=== PATIENT | female | born 1980 | race Asian ===

== ENCOUNTER 2023-03-02 07:59 | Outpatient (CLI) | payer OTHER ==
[2023-03-02 12:11] LABS: BASOPHILS # (AUTO) 0.1 10^3/uL (0.0-0.1); BASOPHILS % (AUTO) 0.8 %; EOSINOPHILS # (AUTO) 0.2 10^3/uL (0.0-0.7); EOSINOPHILS % (AUTO) 3.7 %; HCT - HEMATOCRIT 34.6 % (37.0-47.0); HGB - HEMOGLOBIN 10.9 g/dL (12.0-16.0); MEAN CORPUSCULAR HEMOGLOBIN 29.6 pg (27.0-31.0); MEAN CORPUSCULAR HGB CONC 31.5 g/dL (32.0-36.0); MEAN PLATELET VOLUME 9.9 fL (7.9-10.8); MONOCYTES # (AUTO) 0.6 10^3/uL (0.0-1.0); MONOCYTES % (AUTO) 9.9 %; NEUTROPHILS # (AUTO) 3.2 10^3/uL (1.5-6.6); NEUTROPHILS % (AUTO) 52.3 %; PLT - PLATELET COUNT 245 10^3/uL (130-450); RED BLOOD COUNT 3.68 10^6/uL (4.20-5.40); RED CELL DISTRIBUTION WIDTH 12.4 % (12.0-15.0); WHITE BLOOD COUNT 6.2 x10^3/uL (4.8-10.8)
[2023-03-02 12:38] LABS: ALBUMIN 4.1 g/dL (3.2-5.5); ALBUMIN/GLOBULIN RATIO 1.4 (1.0-2.2); ALKALINE PHOSPHATASE 38 IU/L (42-121); ALT ALANINE AMINOTRANSFERASE 9 IU/L (10-60); AST ASPARTATE AMINOTRANSFERASE 13 IU/L (10-42); BILIRUBIN,TOTAL 0.4 mg/dL (0.2-1.0); BUN - BLOOD UREA NITROGEN 11 mg/dL (6-20); CALCIUM 9.3 mg/dL (8.5-10.3); CARBON DIOXIDE - CO2 25 mmol/L (21-32); CHLORIDE 105 mmol/L (101-111); CHOL/HDL RATIO 3.4 (<4.4); CHOLESTEROL 205 mg/dL; CREATININE 0.7 mg/dL (0.6-1.3); GFR - MDRD 92 (>89); GLUCOSE 95 mg/dL (74-104); HDL CHOLESTEROL 60 mg/dL; LDL CHOLESTEROL,CALCULATED 130 mg/dL; LDL/HDL RATIO 2.2 (<4.4); POTASSIUM 3.8 mmol/L (3.5-4.5); SODIUM 137 mmol/L (135-145); TOTAL PROTEIN 7.1 g/dL (6.4-8.9); TRIGLYCERIDES 76 mg/dL (48-352); VLDL CHOLESTEROL 15 mg/dL
[2023-03-02 12:39] LABS: THYROID STIMULATING HORMONE 3.63 uIU/mL (0.34-5.60)
== END 2023-03-02 08:00 | disposition home or self-care (01) ==
LOC: LAB.N 07:59
PROVIDERS: ATTEND Nurse Practitioner
DX: G43.909 Migraine, unspecified, not intractable, without status migrainosus (principal); Z13.220 Encounter for screening for lipoid disorders; F41.9 Anxiety disorder, unspecified; F41.0 Panic disorder [episodic paroxysmal anxiety]
CPT/HCPCS: 36415; 80053; 80061; 83721; 84443; 85025

== ENCOUNTER 2023-03-16 08:00 | Outpatient (CLI) | payer OTHER ==
[2023-03-16 15:12] LABS: FECAL OCCULT BLOOD (FIT) NEGATIVE (NEGATIVE)
== END 2023-03-16 23:59 | disposition home or self-care (01) ==
LOC: LAB 08:00
PROVIDERS: ATTEND Nurse Practitioner
DX: D64.9 Anemia, unspecified (principal)
CPT/HCPCS: 82274

== ENCOUNTER 2023-11-28 10:11 | Outpatient (CLI) | payer OTHER ==
--- NOTE | 2023-12-07 08:15 | Mammography Report ---
BILATERAL DIGITAL SCREENING MAMMOGRAM 3D/2D: 11/28/2023 CLINICAL: Routine screening. Family history of breast cancer. No prior exams were available for comparison. Both breasts are heterogeneously dense, which may obscure small masses (category c / 51-75% glandular tissue). There is an asymmetry in the right breast anterior depth medial region seen on the craniocaudal view only. There also is an oval focal asymmetry with an obscured margin in the right breast central to the nipp le middle depth. No other significant masses, calcifications, or other findings are seen in either breast. IMPRESSION: INCOMPLETE: NEEDS ADDITIONAL IMAGING EVALUATION The asymmetry in the right breast anterior depth medial region seen on the craniocaudal view only is indeterminate. The oval focal asymmetry in the right breast central to the nipple middle depth resembles a cyst and is indeterminate. Additional views with possible ultrasound are recommended. Based on Tyrer-Cuzick model (a risk assessment model), the patient's lifetime risk is 26.3% and her 1 0 year risk is 4.5%. If a patient has an elevated risk, a more comprehensive evaluation should be con sidered and/or a referral to a genetic counselor. The [employer], [employer], and NCCN Guidelines advise the consideration of Breast MRI as an adjunct to screening mammog essie in patients whose "Lifetime risk to develop breast cancer" is 20% or higher. This exam was interpreted at Station ID: [id number]. NOTE: For mammograms, a report in lay terms will be sent to the patient. Approximately 15% of breast malignancies will not be visualized mammographically. In the management of a palpable breast mass, a negative mammogram must not discourage biopsy of a clinically suspicious lesion. Electronically Signed By: Jaron Lima M.D. slc/:12/06/2023 11:29:22 ACR BI-RADS Category 0: Incomplete [id number] PARENCHYMAL PATTERN: (D) - The breast(s) demonstrate(s) heterogeneously dense fibroglandular parenchy ma. BI-RADS CATEGORY: (0) - 0 Mammo and [place] [id number] Immediate follow-up LATERALITY: (B)
== END 2023-11-28 10:12 | disposition home or self-care (01) ==
LOC: DI.N 10:11
DX: Z12.31 Encounter for screening mammogram for malignant neoplasm of breast (principal); Z80.3 Family history of malignant neoplasm of breast; R92.333 Mammographic heterogeneous density, bilateral breasts; R92.8 Other abnormal and inconclusive findings on diagnostic imaging of breast

== ENCOUNTER 2024-01-03 08:10 | Outpatient (CLI) | payer OTHER ==
--- NOTE | 2024-01-03 10:00 | Mammography Report ---
UNILATERAL RIGHT DIGITAL DIAGNOSTIC MAMMOGRAM 3D/2D WITH SPOT COMPRESSION: 01/03/2024 CLINICAL: Patient returns today to evaluate focal asymmetries in the right breast. Comparison is made to exam dated: 11/28/2023 mammogram - [facility]. The breasts are heterogeneously dense, which may obscure small masses (category c / 51-75% glandular tissue). There is an asymmetry in the right breast anterior depth medial region seen on the craniocaudal view only. This is not seen in additional views. There also is an oval focal asymmetry with an obscured and circumscribed margin in the right breast c entral to the nipple middle depth. No other significant masses or calcifications are seen in the breast. IMPRESSION: INCOMPLETE: NEED ADDITIONAL IMAGING EVALUATION The asymmetry in the right breast anterior depth medial region is consistent with fibroglandular tiss ue and is indeterminate. The oval focal asymmetry in the right breast central to the nipple middle depth resembles a cyst and is indeterminate. A targeted ultrasound is recommended and will immediately follow. Based on Tyrer-Cuzick model (a risk assessment model), the patient's lifetime risk is 27.2% and her 1 0 year risk is 4.7%. If a patient has an elevated risk, a more comprehensive evaluation should be con sidered and/or a referral to a genetic counselor. The [employer], [employer], and NCCN Guidelines advise the consideration of Breast MRI as an adjunct to screening mammog essie in patients whose "Lifetime risk to develop breast cancer" is 20% or higher. This exam was interpreted at Station ID: [id number]. NOTE: For mammograms, a report in lay terms will be sent to the patient. Approximately 15% of breast malignancies will not be visualized mammographically. In the management of a palpable breast mass, a negative mammogram must not discourage biopsy of a clinically suspicious lesion. Electronically Signed By: Jaron Lima M.D. slc/:01/03/2024 09:21:01 ACR BI-RADS Category 0: Incomplete: Need Additional Imaging Evaluation PARENCHYMAL PATTERN: (D) - The breast(s) demonstrate(s) heterogeneously dense fibroglandular parelizay paul. BI-RADS CATEGORY: (0) - 0 Ultrasound [id number] Immediate follow-up LATERALITY: (B)
--- NOTE | 2024-01-03 10:00 | Ultrasound Report ---
LIMITED ULTRASOUND OF RIGHT BREAST: 01/03/2024 CLINICAL: Patient returns today to evaluate a focal asymmetry in the right breast. Comparison is made to exams dated: 01/03/2024 mammogram and 11/28/2023 mammogram - [facility]. Color flow and real-time ultrasound of the right breast 3 o'clock and 6 o'clock regions were performe d. There is a 1.3 cm x 1.3 cm x 0.8 cm oval cyst with a septated internal wall in the right breast at 6 o'clock middle depth 2 cm from the nipple. This oval cyst is anechoic with a well-defined boundary a nd posterior acoustic enhancement. This correlates with mammography findings. Color flow imaging de monstrates that there is no vascularity present. No mass or cyst in the 3:00 region. IMPRESSION: BENIGN There is no sonographic evidence of malignancy. The 1.3 cm cyst in the right breast is benign. A 1 year screening mammogram is recommended. Recommend screening breast MRI. Exam findings were conveyed to the patient. This exam was interpreted at Station ID: [id number]. Electronically Signed By: Jaron Lima M.D. slc/:01/03/2024 09:39:18 ACR BI-RADS Category 2: Benign BI-RADS CATEGORY: (2) - 2 RECOMMENDATION: (ANNUAL) - Recommend routine annual screening mammography. [id number] 1 year screening LATERALITY: (B)
== END 2024-01-03 08:11 | disposition home or self-care (01) ==
LOC: DI 08:10
PROVIDERS: ATTEND Nurse Practitioner
DX: N60.01 Solitary cyst of right breast (principal)